=== PATIENT | female | born 1935 | race African-American/Black ===

== ENCOUNTER 2018-06-21 10:28 | Emergency (ER) | payer MEDICARE, OTHER ==
[~2018-06-21] VITALS: Ht 162.6 cm; Wt 77.3 kg
[~2018-06-21 10:28] MED LIST: AMLO-512 PO; CHOL50004 PO; INSLAN SQ; LATA7.5D OU; LOSA1TAB37 PO; MECL-111 PO; METF-960 PO; RANI150T7 PO; SITA100 PO
[2018-06-21] MEDS ORDERED: XALA2.5OS OU (10:46)
[2018-06-21] MEDS ORDERED: DORZ10DR18 OU (10:46)
[2018-06-21 10:55] LABS: GLUCOSE,POINT OF CARE 218 MG/DL (70-110)
[2018-06-21] MEDS ORDERED: FLUORESCEIN SODIUM 1 MG STRIP OS ONE (11:30)
[2018-06-21] MEDS ORDERED: PROPARACAINE HCL 0.5% 15 ML OPHTHALMIC SOLUTION OS ONE (11:30)
[2018-06-21] MEDS ORDERED: TOBRAMYCIN/DEXAMETHASONE 5 ML OPHTHALMIC SUSPENSION OS ONE (12:30)
[2018-06-21] MEDS ORDERED: DEXAMETHASONE 0.1% 5 ML OPHTHALMIC SOLUTION OS ONE (13:00)
[2018-06-21] MEDS ORDERED: TOBRAMYCIN SULFATE 0.3% 5 ML OPHTHALMIC SOLUTION OS ONE (13:00)
[2018-06-21 13:32] VITALS: BP 142/89
== END 2018-06-21 13:36 | disposition home or self-care (01) ==
LOC: EMS 10:29
DX: H57.12 Ocular pain, left eye (principal); E11.39 Type 2 diabetes mellitus with other diabetic ophthalmic complication; H40.9 Unspecified glaucoma; I10 Essential (primary) hypertension; K21.9 Gastro-esophageal reflux disease without esophagitis; M19.90 Unspecified osteoarthritis, unspecified site; Z79.4 Long term (current) use of insulin; Z79.899 Other long term (current) drug therapy; Z90.710 Acquired absence of both cervix and uterus; Z88.0 Allergy status to penicillin; Z88.8 Allergy status to other drugs, medicaments and biological substances